=== PATIENT | male | born 1970 ===

== ENCOUNTER 2019-04-17 00:33 | Observation (INO) | payer OTHER ==
[2019-04-17 01:37] VITALS: BP 143/88; PULSE 52; TEMP 97.5
--- NOTE | 2019-04-17 02:14 | NUR ---
Pt arrived to unit from EMS around 0120. Pt alert and oriented with VSS. Patient ambulatory. Patient here with dx of cholecystitis from [facility]. Patient is 20g in R AC started at [facility]. Orders for NS and Levo, which are running currently. No issues with these medications infusing so far. Patient denies allergies and is a full code. Denies any medical history besides appendectomy. States he has not had BM in 2 days which is not normal for him. Bowel sounds present in all quadrants. Pt c/o generalized abdominal pain, not particularly in one area. PRN diluadid given. call light within reach, will continue to monitor
--- NOTE | 2019-04-17 02:33 | NUR ---
Pt to have abd US in AM, focusing on gallbladder
--- NOTE | 2019-04-17 06:22 | NUR ---
Pt has done well thoughout night. Has been ind in room. Denies needs at this time. Call light within reach, will continue to monitor
[2019-04-17 06:31] VITALS: BP 126/79; PULSE 60; TEMP 97.9
[2019-04-17 07:08] LABS: BASO % 0.5 % (0.0-2.0); EOS # 0.2 (0.0-0.7); EOS % 2.7 % (0-4.0); GRAN # 4.3 (1.4-6.5); GRAN % 55.8 % (42.2-75.2); HEMATOCRIT 45.2 % (42.0-52.0); HEMOGLOBIN 15.2 g/dl (13.5-18.0); LYMPH # 2.3 (1.2-3.4); LYMPH % 29.7 % (20.0-51.0); MEAN CELL VOLUME 81 fl (80.0-100.0); MEAN CORPUSCULAR HEMOGLOBIN 27 pg (27.0-31.0); MEAN CORPUSCULAR HGB CONC 34 g/dl (33.0-37.0); MEAN PLATELET VOLUME 9.7 fl (7.4-10.4); MONO # 0.8 (0.1-0.6); PLATELET COUNT 205 K/mm3 (130-400); RED BLOOD COUNT 5.61 M/mm3 (4.20-5.60); REDCELL DISTRIBUTION WIDTH-CV 12.7 % (11.5-14.5)
[2019-04-17 07:42] LABS: ALBUMIN 4.2 gm/dL (3.5-5.0); BILIRUBIN,TOTAL 4.7 mg/dL (0.0-1.0); CALCIUM 8.8 mg/dL (8.4-10.2); CREATININE, serum 1.02 (0.66-1.25); POTASSIUM 3.7 mmol/L (3.4-5.0); TOTAL PROTEIN 7.1 gm/dL (6.4-8.2)
--- NOTE | 2019-04-17 08:13 | NUR ---
Lying in bed with eyes open. Denies pain in abd at this time. Does have a headache, rating pain 6/10, says it initially started at 8/10 and the shift supervisor rn nurse gave him Tylenol so it is starting to come down. IV to right AC without redness/drainage/edema. Patient denies needs at this time.
--- NOTE | 2019-04-17 08:34 | NUR ---
Patient to US via wheel chair with US staff.
--- NOTE | 2019-04-17 09:00 | NUR ---
Patient brought back to room via wheelchair by US staff.
--- NOTE | 2019-04-17 09:04 | NUR ---
SW met with the patient to discuss discharge plan. The patient lives on [address] with his , Vanessa (ph#[phone]). He reports independence with ADLs and does not have any DME. The patient states that he has never really ever needed to go to a doctor, but that he would go to [facility] on [address], if needed. He also receives his medication on [address]. The patient does not have advanced directives in EMR, but he states that he does have them completed. He states that his is his DPOA-HC. The patient plans to return home with his upon discharge. No additional needs at this time.
--- NOTE | 2019-04-17 11:59 | NUR ---
First visit from the recruitment assistant. No needs right now.
[2019-04-17 12:00] VITALS: BP 127/89; PULSE 59; TEMP 97.4
--- NOTE | 2019-04-17 13:02 | NUR ---
Patient continues to have headache and requests Tylenol. Administered Tylenol as prescribed. Patient denies further needs.
[2019-04-17 15:14] LABS: BILIRUBIN,DIRECT 0.2 mg/dL (0.0-0.4)
[2019-04-17 17:01] VITALS: BP 126/74; PULSE 61; TEMP 98.5
[2019-04-17 19:14] LABS: IRON,SERUM 49 ug/dL (35-150)
[2019-04-17 19:23] LABS: TOTAL IRON BINDING CAPACITY 304 ug/dL (261-462)
[2019-04-17 19:40] VITALS: BP 134/79; PULSE 58; TEMP 98.3
--- NOTE | 2019-04-17 19:45 | NUR ---
Pt. laying in bed at this time. Pt. is A&OX3, assessment complete. IV to rt. AC patent, IV fluids infusing per orders. Pt. reports headache, offered Tylenol. Pt. reported that it really hasn't helped. Dr. Fraser notified. Waiting for return call. Pt. denies further needs, call light within reach.
--- NOTE | 2019-04-17 20:25 | NUR ---
New orders received from Dr. Fraser. Gave pain meds per orders.
[2019-04-18 03:23] VITALS: BP 133/85; PULSE 58; TEMP 98.2
[2019-04-18 07:19] VITALS: BP 126/68; PULSE 63; TEMP 97.6
--- NOTE | 2019-04-18 07:48 | NUR ---
Sitting up in bed with eyes open. Denies pain. Says that the Motrin helped more with his headache than the Tylenol was. No abd pain. Tolerated breakfast without difficulty. Was able to have a soft bowel movement this morning. Denies further needs at this time.
[2019-04-18 07:58] LABS: ALBUMIN 3.5 gm/dL (3.5-5.0); BILIRUBIN,TOTAL 3.6 mg/dL (0.0-1.0); CALCIUM 8.7 mg/dL (8.4-10.2); CREATININE, serum 0.99 (0.66-1.25); POTASSIUM 3.9 mmol/L (3.4-5.0); TOTAL PROTEIN 6.4 gm/dL (6.4-8.2)
[2019-04-18 11:25] VITALS: BP 134/89; PULSE 60; TEMP 98.4
--- NOTE | 2019-04-18 13:20 | NUR ---
Lying in bed with eyes open. Up independently in room. Verbalizes that he hopes he will be able to go home today. Explain that we just have to wait for Dr. Scruggs to come in to see him and write for discharge orders. Patient verbalizes understanding and denies needs at this time.
[2019-04-18 15:25] VITALS: BP 137/92; PULSE 56; TEMP 98
--- NOTE | 2019-04-18 17:07 | NUR ---
IV site discontinued as patient is being discharged. Catheter intact. Applied 2x2 to site and reinforced with coban. Reviewed discharge instructions with the patient. Patient denies questions and verbalizes understanding to all. Patient signs discharge paperwork. Packet provided to the patient with all discharge paperwork. Patient ambulates to POV with ALCIDES Marshall, and patient's friend and daughters.
== END 2019-04-18 17:09 | disposition home or self-care (01) ==
LOC: SURG 00:33
PROVIDERS: Internal Medicine Gastroenterology; ADMIT Surgery
DX: R10.9 Unspecified abdominal pain (principal); R17 Unspecified jaundice; Z79.899 Other long term (current) drug therapy
CPT/HCPCS: G0378; G0379; J1170; J1956; J7030